=== PATIENT | male | born 1995 | race African-American/Black ===

== ENCOUNTER 2024-11-13 14:14 | Emergency (ER) | payer SELFPAY ==
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
[2024-11-13 14:22] VITALS: BP 141/80; PULSE 58; RESP 18; TEMP 36.6; O2SAT 100
[2024-11-13 14:44] VITALS: BP 127/86; PULSE 82; RESP 16; TEMP 36.8; O2SAT 100
--- OUTSIDE RECORDS SUMMARY | 2024-11-13 15:21 | XMS_ITS | CONTINUITY OF CARE DOCUMENT ---
Author Name nohemy slater Address Unknown Organization [facility] Address [address] [place] [address] Phone [phone] Care Team Providers Care Exhibit Electrician Name Role Phone nohemy slater Unavailable Unavailable INSURANCE PROVIDERS Payer name Policy type / Coverage type [place] [employer] party ID [employer] AND FAMILY [employer] Medicaid 1 [id number]
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
[2024-11-13] MEDS: IBUPROFEN 600 MG TABLET PO (16:21)
[2024-11-13] MEDS: HYDROcodone/acetaminophen (*CRX) 5-325 MG TABLET 1 TAB PO (16:22)
[2024-11-13] MEDS: TETANUS,DIPHTHERIA,AC PERTUSSIS ADULT (0.5 ML) BOOSTRIX IM (16:22)
--- OUTSIDE RECORDS SUMMARY | 2024-11-13 16:58 | XMS_ITS | CONTINUITY OF CARE DOCUMENT ---
Author Name nohemy slater Address Unknown Organization [facility] Address [address] [place] [address] Phone [phone] Care Team Providers Care Housekeeping Supervisor Name Role Phone nohemy slater Unavailable Unavailable INSURANCE PROVIDERS Payer name Policy type / Coverage type [place] [employer] ID HE[employer] AND FAMILY SERVICES Medicaid 1 [id number]
== END 2024-11-13 17:08 | disposition home or self-care (01) ==
PROVIDERS: Emergency Provider Student in an Organized Health Care Education/Training Program
DX: S63.501A Unspecified sprain of right wrist, initial encounter (principal); S66.911A Strain of unspecified muscle, fascia and tendon at wrist and hand level, right hand, initial encounter; S60.410A Abrasion of right index finger, initial encounter; Z23 Encounter for immunization; Y08.89XA Assault by other specified means, initial encounter
CPT/HCPCS: 73110; 73130; 90471; 90715; 99283; A9270